=== PATIENT | female | born 1955 | race Caucasian/White ===

== ENCOUNTER 2019-05-08 11:26 | Emergency (ER) | payer MEDICARE, SELFPAY ==
[2019-05-08] VITALS (7 sets, daily range): BP systolic 114–175; BP diastolic 93–115; PULSE 78–85; RESP 16–20; TEMP 36.5; O2SAT 93–96; BMI 21.2
--- NOTE | 2019-05-08 11:42 | ED_ITS ---
Entered by Mami Agudelo, acting as scribe for Payton Ramirez MD May 08, 2019 11:26 HPI - Back Pain/Injury General: Chief Complaint: Back Pain/Injury Stated Complaint: back pain Time Seen by Provider: 05/08/19 11:42 Source: patient Mode of arrival: ambulatory Limitations: no limitations History of Present Illness: HPI Narrative: 63 yo Female presents to ED with co mplaint of middle and lower back pain. Pt states that her middle back pain started Monday. Pt states that her lower back pain started a couple of days ago. Pt states that she has been having bladder incontinence over the last few days as well. Pt states that she has been on antibiotics in the past week for pneumonia but has finished the antibiotics. MD elicited complaint: back pain Onset (ago): day(s) Timing: progressively worsening Pain scale (0-10): 10 Similar Symptoms Previously: Yes Quality: throbbing Location: lumbar spine and thoracic spine Radiation: none Exacerbating factors: deep breaths Relieving factors: none Associated symptoms: Reports urinary frequency; Deny abdominal pain, chills, change in bowel habits, fever(s), nausea or vomiting Work related injury: No Review of Systems General: Reports: 10 or more systems reviewed and unremarkable except in HPI and below Const: Denies: fever or chills Eyes: Denies: change in vision ENMT: Denies: throat pain Card: Denies: chest pain Resp: Denies: shortness of breath GI: Denies: abdominal pain, nausea, vomiting or change in bowel habits : Reports: urinary incontinence; Denies: difficulty urinating Musc: Reports: back pain; Denies: muscle weakness Skin/Breast: Denies: rash Neuro: Denies: headache Psych: Denies: hopelessness or suicidal ideation Endo: Denies: excessive urination Khoi/Lymph: Denies: easy bruising or easy bleeding All/Imm: Denies: hives PFS ED PFSH: Social History Smoking and tobacco status: current every day smoker Physical Exam Const: COMMON NORMALS: no apparent distress, oriented x3, alert and well nourished HENMT: COMMON NORMALS: normocephalic and external nose normal HEAD & SCALP: normocephalic NOSE: external nose normal MOUTH: no trismus Eye: COMMON NORMALS: EOMs intact bilaterally and conjunctivae normal CONJUNCTIVA: Yes conjunctivae normal Neck/C-Spine: COMMON NORMALS: full ROM, no lymphadenopathy and supple CERVICAL SPINE: Yes cervical ROM normal Lymph: LYMPHATIC: no lymphadenopathy noted Resp: COMMON NORMALS: normal respiratory effort, no retractions, no use of accessory muscles and clear to auscultation bilaterally EFFORT & INSPECTION: Yes able to speak in complete sentences AUSCULTATION: clear to auscultation bilaterally Cardio: COMMON NORMALS: regular rate and regular rhythm RATE: regular rate RHYTHM: regular rhythm GI: COMMON NORMALS: normal to inspection, nondistended, normoactive bowel sounds, soft to palpation, non-tender and no masses INSPECTION: Yes normal to inspection AUSCULTATION: Yes normoactive bowel sounds PALPATION: Yes soft, No guarding and No rigid : BLADDER/KIDNEY EXAM: Yes CVA tenderness Back/Pelvis: GENERAL BACK: Yes CVA tenderness CVA tenderness: left OTHER: Normal range of motion Extremity: GENERAL: Yes normal exam except as noted Neuro: COMMON NORMALS: oriented x3 and CN's II-XII intact bilaterally SENSORIUM/ORIENTATION: Yes alert SPEECH: speech normal Psych: COMMON NORMALS: mental status grossly normal Skin: COMMON NORMALS: no rashes or lesions noted GENERAL SKIN EXAM: no rashes or lesions noted Course Vital Signs: Vital signs: Vital Signs Temperature 97.7 F 05/08/19 11:30 Pulse Rate 78 05/08/19 13:57 Respiratory Rate 16 05/08/19 14:46 Blood Pressure 155/94 05/08/19 12:12 Pulse Oximetry 93 05/08/19 14:46 MDM - Back Pain/Injury MDM Narrative: Medical decision making narrative: Updated patient on her CAT scan and x-ray. I suspect she has musculoskeletal back pain which also includes but not limited to the possibility of having a herniated disc which is causing her left-sided back pain. She does not have any signs or symptoms of cauda equina. Since she still has evident pneumonia in the right middle lobe will give her course of antibiotics she just finished Augmentin for the suspected pneumonia but did not have any x-rays performed that I can find. She is not requiring oxygen she is alert and oriented nontoxic-appearing she agrees to follow-up as an outpatient for further testing if pain does not resolve on the left side of her back. Lab Data: Attestation: I reviewed the patient's lab results. Labs: Lab Results 05/08/19 Range/Units 12:04 Urine Color Straw (Yellow) Urine Appearance Clear (CLEAR) Urine pH 6.0 (5-7) Ur Specific Gravit y 1.010 (1.005-1.030) Urine Protein Neg (Negative) Urine Glucose (UA) Norm (Normal) Urine Ketones Negative (Negative) Urine Blood Neg (Negative) Urine Nitrate Negative (Negative) Urine Bilirubin Neg (NEGATIVE) Urine Urobilinogen Norm (Negative) mg/dL Ur Leukocyte Rere ase Negative (Negative) Imaging Data^: CXR: Radiologist's impression: [place] [address] XRay Report Signed Patient: Brook Trinh #: [id number] : 1955cct#:[id number] Age/Sex: 63 / FADM Date: 05/08/19 [facility] Dr: Ordering Provider/Ordering MD: Payton Ramirez MD Date of Service: 05/08/19 Procedure(s): XR chest 2V* 19472 Accession Number(s): [id number] Report Number: [id number] WS: [id number] XR chest 2V* [id number] REASON FOR EXAM: soa FINDINGS: The lung crump are hyper aerated. There is a diffuse infiltrate involving the posterior segment of the right lower lung The hilar apices were normal. There is arteriosclerotic changes seen in the arch of the aorta. XR/XR chest 2V* [id number] IMPRESSION: Diffuse right posterior segmental pneumonia. Chronic obstructive pulmonary disease That should be noted there is multiple osteoporotic compression changes of the thoracic spine. Dictated By:Santiago Jorgensen DO Signed By:Santiago Jorgensen DOSigned Date/Time:05/08/19 1317 DD/ 1311 CT Abd/Pel: Radiologist's impression: [place] [address] CT Scan Report Signed Patient: Brook Trinh #: [id number] : 1955cct#:[id number] Age/Sex: 63 / FADM Date: 05/08/19 Loc: [facility]/Bed: Attending Dr: Ordering Provider/Ordering MD: Payton Ramirez MD Date of Service: 05/08/19 Procedure(s): CT kidney stone 79474 Accession Number(s): [id number] Report Number: [id number] PROCEDURE INFORMATION: Exam: CT Abdomen And Pelvis Without Contrast Exam date and time: 05/08/2019 12:46 PM Age: 63 years old Clinical indication: Patient HX: Left flank pain x 3 days TECHNIQUE: Imaging protocol: Computed tomography of the abdomen and pelvis without contrast. Total DLP: 479.84 mGy-cm Radiation optimization: All CT scans at this facility use at least one of these dose optimization techniques: automated exposure control; mA and/or kV adjustment per patient size (includes targeted exams where dose is matched to clinical indication); or iterative reconstruction. COMPARISON: No relevant prior studies available. FINDINGS: Detailed evaluation of the abdominal and pelvic viscera is somewhat limited in the absence of intravenous contrast. Lungs: Interstitial prominence, bibasilar airspace disease, and parenchymal density in the right middle lobe. Liver: No focal hepatic mass. Gallbladder and bile ducts: No cholelithiasis or biliary ductal dilatation. Pancreas: No pancreatic mass or ductal dilatation. Spleen: No splenomegaly. 8 mm accessory spleen. Adrenals: Unremarkable adrenals. Kidneys and ureters: 10 mm nodular hypodense lesion arising from the posterior left kidney which does not fulfill CT criteria for a simple cyst. Nonobstructing 2 mm right renal calculus. Stomach and bowel: Mild small bowel dilatation. Prominent stool, in a pattern of constipation. Appendix: No acute appendicitis. Intraperitoneal space: No significant free fluid. Vasculature: Prominent vascular calcification. No abdominal aortic aneurysm. Lymph nodes: No pathologically enlarged lymph nodes. Bladder: Nondistended bladder. Reproductive: Unremarkable as visualized. Bones/joints: Osteopenia. Mild degenerative change. CT/CT kidney stone [id number] IMPRESSION: 1. 10 mm nodular hypodense lesion arising from the posterior left kidney which does not fulfill CT criteria for a simple cyst. Nonobstructing 2 mm right renal calculus. 2. Mild small bowel dilatation and prominent stool. 3. Additional findings as described above. Radiation Dose CTDIVOL = (mGy): DLP = 479.84 (mGy-cm) Dictated By:Tim Coburn MD Signed By:Tim Coburn MDSigned Date/Time:05/08/191427 DD/ 25 Discharge Plan Discharge Patient Disposition: Home, Self-Care Clinical Impression: Back pain Qualifiers: Back pain location: back pain in unspecified location Chronicity: unspecified Back pain laterality: bilateral Qualified Code(s): M54.9 - Dorsalgia, unspecified Pneumonia Qualifiers: Pneumonia type: due to unspecified organism Laterality: right Lung location: middle lobe of lung Qualified Code(s): J18.9 - Pneumonia, unspecified organism Condition: Stable Prescriptions: New Levaquin 750 mg tablet 750 mg PO DAILY 5 Days Qty: 5 RF: 0 [place] 5-325 mg tablet 1 tab PO Q6H PRN (Reason: pain) 3 Days Qty: 10 RF: 0 No Action Trelegy Ellipta 100-62.5-25 mcg blister with device 1 inh INHALATION DAILY RF: 0 Tylenol 325 mg Tablet 325 mg PO QID PRN (Reason: Pain) RF: 0 ibuprofen 200 mg Tablet 400 mg PO Q6H PRN (Reason: Pain) RF: 0 Referrals: Angelic York [Primary Care Provider] - Discharge Activity: Resume usual activity Patient Instructions: Back Pain (ED), Pneumonia (ED) Activity Restrictions/Additional Instructions: Take the antibiotics as prescribed for your pneumonia in your right lung. Follow-up with your doctor if continued back pain. You may need further testing as an outpatient for a musculoskeletal cause of this back pain but no emergent or life-threatening condition was found in the emergency department today to be causing your back pain on the left side. Coding Level of Care Code ED Radiologic Technician for Chg Fwd Exam Comprehensive The documentation recorded by the Magnus galindo Carmen, accurately reflects the service I personally performed and the decisions made by me, Payton Ramirez MD May 08, 2019 11:26
[2019-05-08 12:15] LABS: Add Urine Microscopic? NO
[2019-05-08 12:26] LABS: Urine Appearance Clear (CLEAR); Urine Color Straw (Yellow)
[2019-05-08 12:27] LABS: Bilirubin Urine Neg (NEGATIVE); Blood Urine Neg (Negative); Glucose Urine UA Norm (Normal); Ketones Urine Negative (Negative); Leukocyte Esterase Urine Negative (Negative); Nitrate Urine Negative (Negative); Protein Urine Neg (Negative); Urobilinogen Urine Norm (Negative)
--- NOTE | 2019-05-08 12:31 | CTR_ITS ---
PROCEDURE INFORMATION: Exam: CT Abdomen And Pelvis Without Contrast Exam date and time: 05/08/2019 12:46 PM Age: 63 years old Clinical indication: Patient HX: Left flank pain x 3 days TECHNIQUE: Imaging protocol: Computed tomography of the abdomen and pelvis without contrast. Total DLP: 479.84 mGy-cm Radiation optimization: All CT scans at this facility use at least one of these dose optimization techniques: automated exposure control; mA and/or kV adjustment per patient size (includes targeted exams where dose is matched to clinical indication); or iterative reconstruction. COMPARISON: No relevant prior studies available. FINDINGS: Detailed evaluation of the abdominal and pelvic viscera is somewhat limited in the absence of intravenous contrast. Lungs: Interstitial prominence, bibasilar airspace disease, and parenchymal density in the right middle lobe. Liver: No focal hepatic mass. Gallbladder and bile ducts: No cholelithiasis or biliary ductal dilatation. Pancreas: No pancreatic mass or ductal dilatation. Spleen: No splenomegaly. 8 mm accessory spleen. Adrenals: Unremarkable adrenals. Kidneys and ureters: 10 mm nodular hypodense lesion arising from the posterior left kidney which does not fulfill CT criteria for a simple cyst. Nonobstructing 2 mm right renal calculus. Stomach and bowel: Mild small bowel dilatation. Prominent stool, in a pattern of constipation. Appendix: No acute appendicitis. Intraperitoneal space: No significant free fluid. Vasculature: Prominent vascular calcification. No abdominal aortic aneurysm. Lymph nodes: No pathologically enlarged lymph nodes. Bladder: Nondistended bladder. Reproductive: Unremarkable as visualized. Bones/joints: Osteopenia. Mild degenerative change. CT/CT kidney stone [id number] IMPRESSION: 1. 10 mm nodular hypodense lesion arising from the posterior left kidney which does not fulfill CT criteria for a simple cyst. Nonobstructing 2 mm right renal calculus. 2. Mild small bowel dilatation and prominent stool. 3. Additional findings as described above. Radiation Dose CTDIVOL = (mGy): DLP = 479.84 (mGy-cm)
--- NOTE | 2019-05-08 12:41 | XR_ITS ---
WS: [id number] XR chest 2V* [id number] REASON FOR EXAM: soa FINDINGS: The lung crump are hyper aerated. There is a diffuse infiltrate involving the posterior se gment of the right lower lung The hilar apices were normal. There is arteriosclerotic changes seen in the arch of the aorta. XR/XR chest 2V* [id number] IMPRESSION: Diffuse right posterior segmental pneumonia. Chronic obstructive pulmonary disease That should be noted there is multiple osteoporotic compression changes of the thoracic spine.
--- NOTE | 2019-05-08 15:00 | PC.NURSE ---
Dr. Ramirez stated she ordered these meds on the wrong pt. Dr. Ramirez gave verbal order to nurse to not administer.
== END 2019-05-08 15:24 | disposition home or self-care (01) ==
PROVIDERS: Emergency Provider Emergency Medicine
DX: M54.9 Dorsalgia, unspecified (principal); J18.9 Pneumonia, unspecified organism; J44.0 Chronic obstructive pulmonary disease with (acute) lower respiratory infection; F17.210 Nicotine dependence, cigarettes, uncomplicated; N20.0 Calculus of kidney
CPT/HCPCS: 71046; 74176; 81003; 99282; 99283

== ENCOUNTER 2019-09-18 09:27 | Outpatient (CLI) | payer MEDICARE, SELFPAY ==
--- NOTE | 2019-09-18 08:45 | US_ITS ---
WS: [id number] ULTRASOUND RENAL TECHNIQUE: Ultrasound examination of both kidneys. CLINICAL INFORMATION: Stone COMPARISON: None. FINDINGS: RIGHT: Right kidney is normal in size and appearance. Echogenicity: Normal. Cortical thickness: 1.1 cm; Normal. Hydronephrosis: None. Perinephric fluid: None. Right kidney measures: 9.4 cm x 3.6 cm x 3.7 cm. LEFT: Simple cyst left kidney measuring 1.4 x 1.2 CCM. Left kidney is normal in size and appearance. Echogenicity: Normal. Cortical thickness: 1.4 cm; Normal. Hydronephrosis: None. Perinephric fluid: None. Left kidney measures: 9.7 cm x 4.6 cm x 4.3 cm. Normal visualized aorta. Mild diffuse bladder wall thickening. Echogenic debris noted within the blad forrest. US/US renal BI* [id number] IMPRESSION: 1. No hydronephrosis in either kidney. 2. Simple left renal cyst measuring 1.4 x 1.2 cm 3. Mild diffuse bladder wall thickening. Moderate amount of debris noted withi n the bladder. Some this may represent blood products
== END 2019-09-18 09:28 | disposition home or self-care (01) ==
LOC: RAD 09:27
PROVIDERS: PCP Family Medicine; Visit Provider Urology
DX: N20.0 Calculus of kidney (principal); N28.1 Cyst of kidney, acquired; R31.9 Hematuria, unspecified
CPT/HCPCS: 76770; 80053; 81001; 87077; 87086; 87186; 88112

== ENCOUNTER → 2019-11-27 09:06 | Outpatient (BNVA) | payer MEDICARE, SELFPAY | PROVIDERS: PCP Family Medicine; Visit Provider Urology | DX: R31.0 Gross hematuria (principal); N30.80 Other cystitis without hematuria | CPT/HCPCS: 80053; 81001; 87077; 87086; 87186 ==

== ENCOUNTER → 2020-01-08 09:02 | Outpatient (BNVA) | payer MEDICARE, SELFPAY | PROVIDERS: PCP Family Medicine; Visit Provider Urology | DX: N30.80 Other cystitis without hematuria (principal); R32 Unspecified urinary incontinence | CPT/HCPCS: 81003 ==

== ENCOUNTER 2020-01-21 09:04 | Outpatient (CLI) | payer MEDICARE, SELFPAY ==
--- NOTE | 2020-01-21 09:30 | US_ITS ---
WS: [id number] RIGHT UPPER QUADRANT ULTRASOUND HISTORY: K82.8 - Other specified diseases of gallbladder COMPARISON: None available. Liver: 15.0 cm in length. Normal size liver. No bile duct dilatation or mass. Gallbladder: Normally distended gallbladder with no stones or wall thickening. CBD: 0.3 cm Pancreas: Normal size and echogenicity. Right kidney: 10.2 cm in length. Normal size and echogenicity. No hydronephrosis or mass. Aorta and IVC: Unremarkable abdominal aorta and IVC. No ascites. US/US liver [id number] IMPRESSION: Normal RIGHT upper quadrant ultrasound.
== END 2020-01-21 09:05 | disposition home or self-care (01) ==
PROVIDERS: PCP Family Medicine; Visit Provider Surgery
DX: K82.8 Other specified diseases of gallbladder (principal)
CPT/HCPCS: 76705

== ENCOUNTER 2020-02-07 07:57 | Outpatient (CLI) | payer MEDICARE, SELFPAY ==
--- NOTE | 2020-02-07 08:00 | NM_ITS ---
WS: [id number] NUCLEAR MEDICINE HIDA SCAN CLINICAL INFORMATION: R10.9 - Unspecified abdominal pain TECHNIQUE: Following intravenous administration of 7.8 mCi of technetium 99m mebrofenin, images of th e abdomen were obtained over the course of 60 minutes. Next, gallbladder ejection fraction was determ ined by obtaining preprandial and one-hour postprandial images of the gallbladder following oral karlos stion of Ensure. COMPARISON: None. FINDINGS: Normal hepatic uptake at 5 minutes. Normal common bile duct and small bowel activity. Gallbladder is visualized by 60 minutes. No evidence of acute cholecystitis or choledocholithiasis. Gallbladder ejection fraction 86% within normal limits. No evidence of chronic cholecystitis. NM/NM hepatobiliary w phar* [id number] IMPRESSION: 1. No evidence of acute or chronic cholecystitis. 2. Normal gallbladder ejection fraction 86% within normal limits.
== END 2020-02-07 07:58 | disposition home or self-care (01) ==
LOC: RAD 08:02
PROVIDERS: PCP Family Medicine; Visit Provider Surgery
DX: R10.9 Unspecified abdominal pain (principal)
CPT/HCPCS: 78227; A9537

== ENCOUNTER 2020-02-10 07:57 | Outpatient (CLI) | payer MEDICARE, SELFPAY ==
--- NOTE | 2020-02-10 08:00 | US_ITS ---
WS: [id number] RIGHT UPPER QUADRANT ULTRASOUND HISTORY: K82.8 - Other specified diseases of gallbladder COMPARISON: 01/21/2020 Liver: 12.7 cm in length. Normal size liver. No bile duct dilatation or mass. Gallbladder: Normally distended gallbladder with no stones or wall thickening. CBD: 0.4 cm Pancreas: Normal size and echogenicity. Right kidney: 10.8 cm in length. Normal size and echogenicity. No hydronephrosis or mass. Aorta and IVC: Unremarkable abdominal aorta and IVC. No ascites. US/US gall bladder [id number] IMPRESSION: Normal RIGHT upper quadrant ultrasound.
== END 2020-02-10 07:58 | disposition home or self-care (01) ==
LOC: US 07:58
PROVIDERS: PCP Family Medicine; Visit Provider Surgery
DX: K82.8 Other specified diseases of gallbladder (principal)
CPT/HCPCS: 76705

== ENCOUNTER → 2020-03-16 09:35 | Outpatient (BNVA) | payer MEDICARE, SELFPAY | PROVIDERS: PCP Family Medicine; Visit Provider Urology | DX: N30.80 Other cystitis without hematuria (principal); R32 Unspecified urinary incontinence; N20.0 Calculus of kidney | CPT/HCPCS: 81003 ==

== ENCOUNTER → 2020-05-02 12:00 | Outpatient (BNVA) | payer MEDICARE, SELFPAY | PROVIDERS: PCP Family Medicine; Visit Provider Surgery | DX: R10.9 Unspecified abdominal pain (principal); Z20.822 Contact with and (suspected) exposure to COVID-19 | CPT/HCPCS: 87635 ==

== ENCOUNTER 2020-05-06 07:52 | Day surgery (SDC) | payer MEDICARE, SELFPAY ==
[2020-05-04 14:04] VITALS: BMI 23.9
--- NOTE | 2020-05-06 08:23 | W.PM.OPSUD ---
Surgery/Procedure H&P Update DATE OF PROCEDURE: May 06, 2020 DATE H&P PERFORMED: 04/09/20 H&P UPDATE INFORMATION: I have reviewed H&P completed within last 30 days, I have examined patient prior to procedure and No changes to prior documentation PREOP DIAGNOSIS: GERD,persistent Acid reflux/abdominal pain PRIMARY INDICATION FOR PROCEDURE: The same PLANNED PROCEDURE: Operation Date: 05/06/20 09:00 Proposed Procedures p EGD/colon [id number] 34196 R10.9(Not Applicable) - Jose Manuel Lewis MD s Colonoscopy(Not Applicable) - Jose Manuel Lewis MD
[2020-05-06 08:31] VITALS: BP 128/74; PULSE 85; RESP 22; TEMP 36.1; O2SAT 97
[2020-05-06] MEDS: sodium chloride 0.9% 1,000 ML 30 ML IV (08:42)
--- NOTE | 2020-05-06 08:58 | ANES.PREANE2 ---
Pre-Anesthetic Assessment Pre-Anesthetic Assessment: Height/Weight: Height 1.57 m Weight 59.421 kg Temp Pulse Resp BP Pulse Ox 97 F L 85 22 H 128/74 97 05/06/20 08:31 05/06/20 08:31 05/06/20 08:31 05/06/20 08:31 05/06/20 08:31 Preop Diagnosis: GERD,persistent Acid reflux/abdominal pain Proposed Procedure: Operation Date: 05/06/20 09:00 Proposed Procedures p EGD/colon [id number] 24858 R10.9(Not Applicable) - Jose Manuel Lewis MD s Colonoscopy(Not Applicable) - Jose Manuel Lewis MD Familial anesthetic complications: none Was Beta Tomy taken within 24 hours: N/A Last intake: Intake Last Liquid Date 05/05/20 Last Liquid Time 20:00 Last Solid Date 05/03/20 Last Solid Time 23:55 Last Intake: 23:00 Social: Social History: Tobacco and No alcohol Packs per day: 1ppd Pack years: 50+ Comment: trying to stop Exam: Pre-Anes Outpt Exam: alert, oriented x 3, clear to auscultation bilaterally (dim bilateral) and regular rate & rhythm Airway: Submandibular: WNL Cervical ROM: WNL MP: 2 Dentition: Chipped (front upper) Pulmonary: Pulmonary: COPD, Cough and BOWERS CV/HEM: CV/HEM: HTN : : Chronic renal Insufficiency and UTI Hepatic: Hepatic: None reported GI: GI: GERD Metabolic: Metabolic: None reported Musc/skel: Musc/skel: None reported Neuropsych: Neuropsych: None reported Anesthetic Plan: ASA status: 3 Anesthesia: MAC Meds/Allergies Current Medications: Current Medications Generic Name Dose Route Start Last Admin Trade Name Freq PRN Reason Stop Dose Admin Sodium Chloride 1,000 mls @ 30 ml s/hr 05/06/20 08:30 05/06/20 08:42 Sodium Chloride 0.9% IV 05/07/20 08:29 30 mls/hr .Q24H GOYO Administration PFSH Anesthesia PFSH: Medical History COPD (chronic obstructive pulmonary disease) Cystitis cystica Emphysema lung Renal calculus, right Renal cyst, left Family History Mother Chronic kidney disease (CKD) Brother Diabetes Father CAD (coronary artery disease) Social History Smoking and tobacco status: former smoker Alcohol intake: never Adopted: No Caregiver/support person: No Lives independently: No Household members: spouse Marital status: Current occupational status: retired History of recent travel: No Current gender identity: Female Data Anesthesia Cardiac Studies: No Data to Display
[2020-05-06 09:34] VITALS: BP 112/63; PULSE 78; RESP 16; TEMP 36.2; O2SAT 96
--- NOTE | 2020-05-06 09:46 | ANE.PACU2 ---
Inpatient post-anesthesia follow up: Airway intact: Yes Vital signs: Temperature 97.1 F Pulse Rate 78 Respiratory Rate 16 Blood Pressure 112/63 Pulse Oximetry 96 Oxygen Delivery Me thod Nasal Cannula Oxygen Flow Rate 3 Fraction of Inspir ed Oxygen Hydration adequate: Yes Nausea and vomiting: No Pain level: 1 Mental status: Baseline
[2020-05-06 09:49] VITALS: BP 121/82; PULSE 63; RESP 18; TEMP 36.3; O2SAT 100
--- NOTE | 2020-05-06 13:00 | ANE.PACU2 ---
Inpatient post-anesthesia follow up: Airway intact: Yes Vital signs: Temperature 97.3 F Pulse Rate 63 Respiratory Rate 18 Blood Pressure 121/82 Pulse Oximetry 100 Oxygen Delivery Me thod Room Air Oxygen Flow Rate 3 Fraction of Inspir ed Oxygen Hydration adequate: Yes Nausea and vomiting: No Pain level: 1 Mental status: Baseline
== END 2020-05-06 10:19 | disposition home or self-care (01) ==
PROVIDERS: PCP Family Medicine; Visit Provider Surgery
PROC: 0DJ08ZZ Inspection of Upper Intestinal Tract, Via Natural or Artificial Opening Endoscopic (ICD-10-PCS; CPT 43235; principal; 2020-05-06 09:00)
PROC: 0DJD8ZZ Inspection of Lower Intestinal Tract, Via Natural or Artificial Opening Endoscopic (ICD-10-PCS; CPT 45378; 2020-05-06 09:00)
DX: K21.9 Gastro-esophageal reflux disease without esophagitis (principal); R10.9 Unspecified abdominal pain; D12.5 Benign neoplasm of sigmoid colon; D12.8 Benign neoplasm of rectum; K31.7 Polyp of stomach and duodenum; K44.9 Diaphragmatic hernia without obstruction or gangrene; I10 Essential (primary) hypertension; F17.210 Nicotine dependence, cigarettes, uncomplicated; J43.9 Emphysema, unspecified
CPT/HCPCS: 43239; 45380; 45385; 88305; 96360; J2704; J7030

== ENCOUNTER 2020-05-15 08:18 | Outpatient (CLI) | payer MEDICARE, SELFPAY ==
--- NOTE | 2020-05-15 08:00 | NM_ITS ---
WS: [id number] NUCLEAR MEDICINE HIDA SCAN CLINICAL INFORMATION: R10.9 - Unspecified abdominal pain TECHNIQUE: Following intravenous administration of 7.2 mCi of technetium 99m mebrofenin, images of th e abdomen were obtained over the course of 60 minutes. Next, gallbladder ejection fraction was determ ined by obtaining preprandial and one-hour postprandial images of the gallbladder following oral karlos stion of Ensure. COMPARISON: February 07, 2020 FINDINGS: Normal hepatic uptake at 5 minutes. Gallbladder is visualized by 40 minutes. No evidence of acute cho lecystitis. Normal hepatic excretion. Normal common bile duct and small bowel activity. No evidence o f choledocholithiasis. Gallbladder ejection fraction 80% within normal limits. No evidence of chronic cholecystitis. NM/NM hepatobiliary w phar* [id number] IMPRESSION: 1. No evidence of acute or chronic cholecystitis. 2. Gallbladder ejection fraction 80% within normal limits.
== END 2020-05-15 08:19 | disposition home or self-care (01) ==
LOC: RAD 08:25
PROVIDERS: PCP Family Medicine; Visit Provider Surgery
DX: R10.9 Unspecified abdominal pain (principal)
CPT/HCPCS: 78227; A9537

== ENCOUNTER 2020-05-21 08:55 | Outpatient (CLI) | payer MEDICARE, SELFPAY ==
--- NOTE | 2020-05-21 09:03 | CT_ITS ---
WS: [id number] LDCT LUNG CANCER SCREENING TECHNIQUE: Noncontrast CT of the chest with coronal and sagittal reformatted images. CLINICAL INFORMATION: TOBACCO USE COMPARISON: None. DLP: 58.94 mGy.cm DIvol: 1.[address] scans at [facility] use at least one of these dose optimization techniques: automat ed exposure control; mA and/or kV adjustment per patient size (includes targeted exams where dose is matched to clinical indication); or iterative reconstruction. FINDINGS: Moderate chronic erythematous changes. No acute pulmonary infiltrates. Slight hazy atelecta sis left lower lobe. Noncalcified 3.6 mm nodule along the left pericardium left upper lobe. Subsegmen jose atelectasis in the lingula. No other suspicious abnormalities. No axillary lymphadenopathy. No axillary lymphadenopathy. Slightly prominent left AP window lymph nod e measuring 9 mm. No mediastinal or hilar lymphadenopathy. Aortic calcification. Anterior wedging with mild chronic appearing compression the mid thoracic spine at T10. Adrenal gland s are normal. CT/CT lung screening [id number] IMPRESSION: LUNG-RADS: 2-Benign Appearance or Behavior FOLLOW UP: 12 Month: Continue annual screening with LDCT
== END 2020-05-21 08:56 | disposition home or self-care (01) ==
LOC: RAD 08:58
PROVIDERS: PCP Family Medicine; Visit Provider Registered Nurse
DX: Z12.2 Encounter for screening for malignant neoplasm of respiratory organs (principal); F17.210 Nicotine dependence, cigarettes, uncomplicated; M48.54XA Collapsed vertebra, not elsewhere classified, thoracic region, initial encounter for fracture; I70.0 Atherosclerosis of aorta; J98.11 Atelectasis
CPT/HCPCS: 71271

== ENCOUNTER 2020-05-25 15:17 | Outpatient (CLI) | payer MEDICARE, SELFPAY ==
--- NOTE | 2020-05-25 15:27 | XR_ITS ---
WS: [id number] Exam: XR DEXA axial skeleton* [id number] Date/Time of Exam: 05/25/2020 3:28 PM Reason For Exam: POSTMENOPAUSAL DEXA BONE DENSITOMETRY [place] The L1-L4 bone mineral density measures 0.738 g/cm2. This corresponds to a T score of -3.7 and Z scor e of -1.9. Left femoral neck bone mineral density measures 0.635 g/cm2. This corresponds to T score of -3.0 and Z score of -1.5. Right femoral neck bone mineral density measures 0.632 g/cm2. This corresponds to a T score of -3.0 a nd Z score of -1.6. Mean femoral neck bone mineral density measures 0.633 g/cm2. This corresponds to a T score of -3.0 an d Z score of -1.5 XR/XR DEXA axial skeleton* [id number] IMPRESSION: Bone mineral density lies in the osteoporotic range. Refer to detailed summary .
== END 2020-05-25 15:18 | disposition home or self-care (01) ==
PROVIDERS: PCP Family Medicine; Visit Provider Registered Nurse
DX: Z13.820 Encounter for screening for osteoporosis (principal); Z78.0 Asymptomatic menopausal state
CPT/HCPCS: 77080

== ENCOUNTER → 2020-06-12 12:11 | Outpatient (BNVA) | payer MEDICARE, SELFPAY | PROVIDERS: PCP Family Medicine; Visit Provider Internal Medicine Critical Care Medicine | DX: Z20.822 Contact with and (suspected) exposure to COVID-19 (principal) | CPT/HCPCS: 87635 ==

== ENCOUNTER 2020-06-18 09:08 | Outpatient (CLI) | payer MEDICARE, SELFPAY ==
--- NOTE | 2020-06-18 09:30 | USCV_ITS ---
Brook Trinh Age: 65 Gender: F : 1955 Exam Date: 06/18/2020 09:57 Ordering Phys: Ally Steele MD Technologist: [place] [facility] [place]: LOWER EXTREMITY EDEMA BP: 155 / 91 HR: 48 Rhythm: Sinus Technical Quality: Technically difficult study MEASUREMENTS (Male / Female) Normal Values 2D ECHO LV Diastolic Diameter PLAX 3.8 cm 4.2 - 5.9 / 3.9 - 5.3 cm LV Systolic Diameter PLAX 2.7 cm IVS Diastolic Thickness 1.4 cm 0.6 - 1.0 / 0.6 - 0.9 cm IVS Systolic Thickness 1.5 cm LVPW Diastolic Thickness 1.0 cm 0.6 - 1.0 / 0.6 - 0.9 cm LVPW Systolic Thickness 1.4 cm LVOT Diameter 2.0 cm LV Ejection Fraction 2D Teich 56.0 % LV Ejection Fraction MOD 2C 76.8 % LV Ejection Fraction 2C AL 78.1 % LA Diameter 3.1 cm LA Width 3.6 cm LA Height 4.0 cm RA Width 2.7 cm RA Height 4.0 cm Aorta at Sinotubular Diameter 2.2 cm M-MODE LV Diastolic Diameter MM 4.8 cm 4.2 - 5.9 / 3.9 - 5.3 cm LV Systolic Diameter MM 3.1 cm LV Ejection Fraction MM Teich 64.2 % IVS Diastolic Thickness MM 1.3 cm 0.6 - 1.0 / 0.6 - 0.9 cm IVS Systolic Thickness MM 1.9 cm LVPW Diastolic Thickness MM 0.7 cm 0.6 - 1.0 / 0.6 - 0.9 cm LVPW Systolic Thickness MM 1.2 cm Aortic Annulus Diameter 2.9 cm LA Ao Ratio MM 1.1 MV E Point Septal Separation 0.2 cm DOPPLER AV Peak Velocity 178.0 cm/s LVOT Peak Velocity 127.0 cm/s AV Area Cont Eq vti 2.8 cm squared AV Area Cont Eq pk 2.3 cm squared MV Area PHT 2.8 cm squared Mitral E to A Ratio 0.8 MV E' Velocity 95.0 cm/s Mitral E to LV E' Septal Ratio 7.8 TR Peak Velocity 251.3 cm/s TR Peak Gradient 25.3 mmHg Right Atrial Pressure 3.0 mmHg Pulmonary Artery Systolic Pressu 28.3 mmHg PV Peak Velocity 71.0 cm/s FINDINGS Left Ventricle Normal left ventricular size and systolic function, EF 68 %. No regional wall motion abnormalities. Mild left ventricular hypertrophy. Grade I/IV diastolic dysfunction (abnormal relaxation filling pattern), normal to mildly elevated filling pressures. Right Ventricle Normal right ventricular systolic function. Right Atrium The right atrium is normal in size. Left Atrium Mild left atrial enlargement Mitral Valve No gross abnormalities noted Aortic Valve Thickened aortic valve. Tricuspid Valve Trace tricuspid valve regurgitation. Pulmonic Valve Pulmonic valve not well visualized. Pericardium Normal pericardium without effusion. Aorta Mild to moderate diffuse plaques in the ascending aorta CONCLUSIONS Normal left ventricular size and systolic function, EF 68 %. No regional wall motion abnormalities. Mild left ventricular hypertrophy. Grade I/IV diastolic dysfunction (abnormal relaxation filling pattern), normal to mildly elevated filling pressures. Mild left atrial enlargement. Trace tricuspid valve regurgitation. Thickened aortic valve. There is no pericardial effusion. There are no intracardiac masses. No previous study is available for comparison. Dr Jhonny Gonzalez MD FACC (Electronically Signed) Final Date: 18 June 2020 18:44 S
--- NOTE | 2020-06-18 11:01 | PFTS_ITS ---
Date of Study:06/18/20 Date of Dictation: 06/19/20 MECHANICS: Prebronchodilator Forced vital capacity (FVC) is normal. Prebronchodilator Forced expiratory volume in one second (FEV1) is moderately reduced 67%. FEV1/FVC is reduced. Post bronchodilator study not performed. FLOW VOLUME LOOP: Sloping of expiratory limb suggestive of airway obstruction . LUNG VOLUMES: Total lung capacity (TLC) is Normal . Residual volume (RV) is mildly increased. DIFFUSING CAPACITY FOR CARBON MONOXIDE: Severely reduced at 38% . INTERPRETATION: The pulmonary function tests are consistent with moderate obstructive ventilatory defect with air trapping noted on lung volumes. There is severe gas transfer defect. Correlate clinically. MTDD
== END 2020-06-18 09:09 | disposition home or self-care (01) ==
LOC: US 09:13
PROVIDERS: PCP Family Medicine; Visit Provider Internal Medicine Critical Care Medicine
DX: R60.0 Localized edema (principal); I08.2 Rheumatic disorders of both aortic and tricuspid valves
CPT/HCPCS: 93306; 94010; 94726; 94729

== ENCOUNTER 2020-06-18 09:08 | Outpatient (CLI) | payer MEDICARE, SELFPAY ==
--- NOTE | 2020-06-18 09:23 | CT_ITS ---
WS: [id number] CT ABDOMEN AND PELVIS WITH CONTRAST HISTORY: ABDOMINAL DISTENTION/ACUTE RUQ ABD PAIN TECHNIQUE: Imaging performed of the abdomen and pelvis with IV contrast. Single phase imaging of the abdomen. Coronal and sagittal reformats are submitted. All CT scans at [facility] use at least one of these dose optimization techniques: automated exposure control; mA and/or kV adjustment per patient size (includes targeted exams where dose is matched to clinical indication); or iterativ e reconstruction. IV CONTRAST: Omnipaque 300; 95 mL IV. Oral contrast: Yes. DLP: 803.55 mGy.cm COMPARISON: 05/08/2019 Lower thorax: Chronic emphysema at the lung bases. No pneumonia. Heart is normal size. No hiatal negin ia. Liver/biliary system: Normal size with no intrahepatic dilatation. Gallbladder: Normal. No gallstones or wall thickening. No pericholecystic fluid. Pancreas: Normal. Spleen: Normal. Adrenal glands: Normal. Right kidney: Normal. Left kidney: Normal size kidney. Cortical cyst measures 11 mm in the mid posterior kidney. Aorta: Moderate atherosclerosis with no aneurysm. Lymphadenopathy: None. Free fluid: None. GI tract: Normal appendix. There is mild constipation. No mucosal thickening or obstruction. No mass is identified. There are a few scattered diverticula within the colon. Abdominal wall: Unremarkable abdominal wall. No hernia. Pelvis: Atrophic uterus. No free fluid or adnexal masses. Atrophic LEFT ovary is reidentified. Bones: Mild osteopenia. CT/CT abdomen pelvis w con* [id number] IMPRESSION: 1. No acute abdominal or pelvic abnormalities are identified. No renal obstruc tion. 2. Moderate atherosclerosis aorta. 3. Constipation with normal appendix. 4. A few scattered diverticula within the distal colon.
[2020-06-18 11:25] LABS: Blood Urea Nitrogen 8 mg/dL (8-23); Glomerular Filtration Rate 62.5 mL/min (90-130)
[2020-06-18] MEDS: iohexol 300 mg/mL 50 mL Btl IV (11:57)
[2020-06-18] MEDS: iohexol 300 mg/mL 100 mL Btl IV (11:57)
== END 2020-06-18 09:09 | disposition home or self-care (01) ==
LOC: RAD 09:10
PROVIDERS: PCP Family Medicine; Visit Provider Registered Nurse
DX: R14.0 Abdominal distension (gaseous) (principal); R10.11 Right upper quadrant pain; R10.31 Right lower quadrant pain; I70.0 Atherosclerosis of aorta; K59.00 Constipation, unspecified
CPT/HCPCS: 36415; 74177; 82565; 84520

== ENCOUNTER → 2020-07-02 09:24 | Outpatient (BNVA) | payer MEDICARE, SELFPAY | PROVIDERS: PCP Family Medicine; Visit Provider Surgery | DX: R10.9 Unspecified abdominal pain (principal); R14.0 Abdominal distension (gaseous) | CPT/HCPCS: 87635 ==

== ENCOUNTER 2020-07-07 10:58 | Day surgery (SDC) | payer MEDICARE, SELFPAY ==
[2020-07-06 13:28] VITALS: BMI 24.9
[2020-07-07] VITALS (18 sets, daily range): BP systolic 118–206; BP diastolic 63–144; PULSE 58–121; RESP 16–28; TEMP 36.1–36.6; O2SAT 88–96
[2020-07-07] MEDS: sodium chloride 0.9% 1,000 ML 30 ML IV (11:35)
[2020-07-07] MEDS: acetaminophen 1,000 MG/100 ML PIGGYBACK 400 MG IV (11:35)
--- NOTE | 2020-07-07 12:04 | P.ANESASSM_ITS ---
Pre-Anesthetic Assessment Pre-Anesthetic Assessment: Height/Weight: Height 1.55 m Weight 59.874 kg Temp Pulse Resp BP Pulse Ox 97.8 F 81 18 150/84 95 07/07/20 11:17 07/07/20 11:17 07/07/20 11:17 07/07/20 11:17 07/07/20 11:17 Preop Diagnosis: Biliary Colic and Bloating Proposed Procedure: Operation Date: 07/07/20 12:30 Proposed Procedures p Laparoscopic Cholecystectomy 65095 R10.9 R14.0(Not Applicable) - Jose Manuel Lewis MD Was Beta Tomy taken within 24 hours: N/A Was Clonidine taken within 24 hours: N/A Last intake: Intake Last Liquid Date 07/06/20 Last Liquid Time 21:00 Last Solid Date 07/06/20 Last Solid Time 16:00 Social: Social History: Tobacco Exam: Pre-Anes Outpt Exam: alert, oriented x 3, clear to auscultation bilate rally and regular rate & rhythm Airway: Submandibular: WNL Cervical ROM: WNL MP: 2 Dentition: Full History/ROS: No significant history except as noted and No significant complaints Pulmonary: Pulmonary: COPD and Cough CV/HEM: CV/HEM: HTN : : Chronic renal Insufficiency Hepatic: Hepatic: None reported GI: GI: GERD Musc/skel: Musc/skel: None reported Anesthetic Plan: ASA status: 3 Anesthesia: Anesthesia Evaluation and General Risk of > 500 ml blood loss (7ml/kg in children): No Meds/Allergies Current Medications: Current Medications Generic Name Dose Route Start Last Admin Trade Name Freq PRN Reason Stop Dose Admin Sodium Chloride 1,000 mls @ 30 ml s/hr 07/07/20 11:15 07/07/20 11:35 Sodium Chloride 0.9% IV 07/08/20 11:14 30 mls/hr .Q24H GOYO Administration PFSH Anesthesia PFSH: Medical History Colon polyps COPD (chronic obstructive pulmonary disease) Cystitis cystica Emphysema lung Esophagitis Gastric polyp Gastritis Hiatal hernia Renal calculus, right Renal cyst, left Family History Mother Chronic kidney disease (CKD) Brother Diabetes Father CAD (coronary artery disease) Social History Smoking and tobacco status: current every day smoker cigarettes Years cigarettes smoked: 55 [ Other cigarette details: [id number] ] Quit status (tobacco): considering quitting Second hand smoke exposure: Yes Smoking risk assessment/counseling performed?: Yes Alcohol intake: never Adopted: No Caregiver/support person: No Lives independently: No Household members: spouse Housing: House Marital status: Current occupational status: retired Pets and animals: No History of recent travel: No Current gender identity: Female Data Anesthesia Cardiac Studies: No Data to Display
--- NOTE | 2020-07-07 12:24 | W.PM.OPSUD ---
Surgery/Procedure H&P Update DATE OF PROCEDURE: July 07, 2020 DATE H&P PERFORMED: 06/17/20 H&P UPDATE INFORMATION: I have reviewed H&P completed within last 30 days, I have examined patient prior to procedure and No changes to prior documentation PREOP DIAGNOSIS: Biliary Colic and Bloating PRIMARY INDICATION FOR PROCEDURE: The same PLANNED PROCEDURE: Operation Date: 07/07/20 12:30 Proposed Procedures p Laparoscopic Cholecystectomy 89662 R10.9 R14.0(Not Applicable) - Jose Manuel Lewis MD
[2020-07-07] MEDS: lidocaine 2% INJ 20 mL INJECTION (13:51)
--- NOTE | 2020-07-07 13:53 | PM.OP ---
Operative Report Date of procedure: July 07, 2020 Pre-op Diagnosis: Biliary Colic and Bloating Post-op diagnosis: other (Chronic cholecystitis) Procedure Done: Laparoscopic cholecystectomy Implants: Surgicel and surgiflow Specimens removed/disposition: Gallbladder and contents Surgeon: Jose Manuel Lewis Family Court Justice: Surgical angelina Johnson/medical student Trixie Griffin Circulating nurse Jessica Anesthesia: General (GETA process developer Yossi) Estimated blood loss (mL): 50 IV fluids (mL): 900 Condition: stable Disposition: same day Brief History: Recurrent biliary colic and bloating. Full H&P and informed consent per chart. Procedure: Patient was identified in the holding area and taken back to the operative suite, placed in supine position intubated by anesthesia . Time-out was done verifying the patient's name/date of /planned procedure and destination after the procedure, all were in agreement. SCDs confirmed to be functioning, preoperative antibiotics administered per protocol, and beta jay protocol was confirmed. Patient was appropriately secured to the table, footboard was applied to the OR table, before prep and drape anesthesia was asked to tilt the table back and forth to make sure that the patient is appropriately secured and she was. Prep and drape of the abdomen was done under the usual sterile technique, followed by that supraumbilical skin incision,skin incision was done by a 15 blade knife, and stay sutures were applied to the fascia and Mejia trocar technique was used to enter the abdominal without injuring any abdominal viscera, started by low flow gas insufflation followed by a high flow, started with a 10 mm laparoscope and under direct vision there was no evidence of any injuries, the scope then switched to a 30? ,10 millimeter scope and under direct visualization 5 millimeter trocar was inserted in the epigastric region followed by two 5 mm trocars were inserted in the right upper quadrant that was done after injection of local lidocaine 2% at all incision sites. Gallbladder showed chronic cholecystitis with fatty liver component Patient was then positioned in the head up and tilted to the left Ratcheted forceps were introduced into the lateral most 5mm port and was applied unto the fundus of the gallbladder cephalad and using Bullet forceps the infundibulum of the gallbladder was retracted laterally. Using [place] forceps then L-hook cautery to dissect the peritoneum overlying the Calot's triangle whihc was then opened medially and laterally until the cystic duct and the cystic artery were skeletonized. Dissection was carried along the body of the gallbladder and after ensuring critical view of safety was identfied. Cystic duct and cystic artery where seen connected to the gallbladder. Clips were applied on the cystic duct towards the common bile duct 1 towards the gallbladder then divided is in sharp scissors, 2 clips were then applied onto the cystic artery and 1 towards the gallbladder and divided by sharp scissors. Dissection was then carried along of the gallbladder from the gallbladder fossa using cautery as well as sharp dissection with heat energy. The gallbladder then was dissected out from the gallbladder fossa totally , cholecystectomy was then achieved and was placed in an Endo Catch bag and then retrieved from the Mejia trocar site under direct visualization using a 5 mm 30? scope through the epigastric trocar, specimen was then passed to the circulating nurse to go for permanent pathology,irrigation and hemostasis was done to the gallbladder fossa,final hemostasis was secured by application of Surgicel and Surgi-Donavan, final survey laparoscopy was done that showed no injuries.Suction irrigation was obtained. The supraumbilical fascial defect was then closed using interrupted #1 PDS sutures using a fascial closure device ;James Perez under direct visualization Gas was allowed to deflate,Trocars were then taken out under direct vision there was no evidence of bleeding Specimen was passed to the circulating nurse for permanent pathology. No drains were placed and the supraumbilical incision as well as all trocar sites were closed by by 4-0 Monocryl to approximate the skin edges of the supraumbilical incision, dressing was applied in the form of Dermabond and the patient patient got extubated and was taken to recovery area in a stable condition. Count of sponges, needles and instruments were completed at the end of the procedure I was present for the whole entire procedure.
[2020-07-07] MEDS: fentaNYL 50 mcg/mL INJ 2mL IVP (14:35)
[2020-07-07] MEDS: labetalol 5 mg/mL SDV 20mL IVP (14:39)
[2020-07-07] MEDS: morphine 4 mg/mL SDV 1 mL 2 MG IVP (14:49)
--- NOTE | 2020-07-07 14:56 | ANE.PACU2 ---
Inpatient post-anesthesia follow up: Airway intact: Yes Vital signs: Temperature 97.8 F Pulse Rate 81 Respiratory Rate 18 Blood Pressure 150/84 Pulse Oximetry 95 Oxygen Delivery Me thod Room Air Oxygen Flow Rate Fraction of Inspir ed Oxygen Hydration adequate: Yes Nausea and vomiting: No Pain level: 3 Additional Comments: Sedated, HTN.
--- NOTE | 2020-07-07 15:34 | SUR.PHASEI ---
1401 PT TO PACU RESTLESS ROLLING IN BED MOANING, BUT DOES NOT AWAKE ABD SOFT WITH 4 SITES D/I BILAT SCDS ON IV TO RT HAND OUT PER PT MOVEMENT PRESSURE HELD AND COBAND TO SITE. 1433 PT HAS BEEN IN MULTIPLE POSITIONS, BP ELEVATED MANUAL BP TAKEN PT C/O OF PAIN AND GRIMICING, HOLDING ABD PT REFUSED BLANKETS, AND IS NOW MORE ALERT IV *20 JELCO STARTED TO RT POSTIOR FOREARM X 1 STICK IV PATENT SEE MEDS GIVEN May JASON BATCH ROOM TECHNICIAN GAVE ORDERS FOR LABETOLOL PER DR WOLFF'S VERBAL ORDER FOR ELEVATED BP PER PHASE 1 PROTOCOL 1435 SEE FENTANYL GIVEN PT NOW REPOSITIONED TO LT SIDE AGAIN AND WARM BLANKKETS TO BACK AND ABD FOR COMFORT, PT ON 3 LNC SAT DOWN TO 85 ON RA. SATS 88-92 NOW. PT IS HOLDING BREATH AND MOANING. RESTLESS 1439 SEE LABETOLOL GIVEN HR 89 AND SR
[2020-07-07] MEDS: HYDROcodone-acetaminophen 5-325 mg Tablet 1 TAB PO (15:37)
--- NOTE | 2020-07-07 15:39 | SUR.PHASEI ---
1449 PT RESTLESS AND MOANS RATED PAIN AT 5 PER FACES SCALE, SEE MED GIVEN PT BP NORMAL NOW AND HR DOWN TO 59 AND SR -SB NO ECTOPY, 1510 PT SLEEPS IF NOT DISTURBED UPDATED PER OPS STAFF PT CALLED REPEATEDLY, PT REPORT GIVEN TO OPS NURSE BRITTANY
== END 2020-07-07 16:15 | disposition home or self-care (01) ==
PROVIDERS: PCP Family Medicine; Visit Provider Surgery
PROC: 0FT44ZZ Resection of Gallbladder, Percutaneous Endoscopic Approach (ICD-10-PCS; CPT 47562; principal; 2020-07-07 12:20)
DX: K81.1 Chronic cholecystitis (principal); I10 Essential (primary) hypertension; K21.9 Gastro-esophageal reflux disease without esophagitis; J43.9 Emphysema, unspecified; Z82.49 Family history of ischemic heart disease and other diseases of the circulatory system; Z83.3 Family history of diabetes mellitus; F17.210 Nicotine dependence, cigarettes, uncomplicated
CPT/HCPCS: 47562; 88304; 96365; J0690; J1100; J2270; J2405; J2704; J2710; J3010; J3490; J7030